=== PATIENT | female | born 1985 | race Caucasian/White ===

== ENCOUNTER 2018-12-13 19:41 | Emergency (ER) | payer OTHER ==
[2018-12-13] MEDS ORDERED: Tetracaine 0.5% OPHTH SOLN/PF 4 ML BOT ONE (19:50)
[2018-12-13] MEDS ORDERED: Fluorescein Opthalmic Strip ONE (19:50)
== END 2018-12-13 21:50 | disposition home or self-care (01) ==
LOC: BURERS 19:41
DX: Z77.098 Contact with and (suspected) exposure to other hazardous, chiefly nonmedicinal, chemicals (principal); F32.9 Major depressive disorder, single episode, unspecified; F17.220 Nicotine dependence, chewing tobacco, uncomplicated; Z79.899 Other long term (current) drug therapy
CPT/HCPCS: 99283